=== PATIENT | male | born 2000 | race Caucasian/White ===

== ENCOUNTER 2021-11-15 10:21 | Observation (INO) ==
[2021-11-15] MEDS ORDERED: 0.9 % Sodium Chloride 1,000 ML IVC ONE ×2 (11:44→12:57)
[2021-11-15] MEDS ORDERED: Haloperidol Lactate 5 MG/ML VIAL IVP ONE (11:44)
[2021-11-15] MEDS ORDERED: Ondansetron 4 MG/2 ML VIAL IVP ONE (11:44)
[2021-11-15 12:23] LABS: Basophils % 0.1 %; Hematocrit 48.4 % (37.5-50.1); Hemoglobin 16.8 g/dL (12.9-16.9); Immature Granulocytes % 0.4 % (0-4); Lymphocytes # 1.1 K/mcL (0.6-4.6); Lymphocytes % 5.9 %; Mean Corpuscular HGB Conc 34.7 g/dL (31.6-35.5); Mean Corpuscular Hemoglobin 28.7 pg (28.0-33.3); Mean Corpuscular Volume 82.6 fL (83.0-100.0); Mean Platelet Volume 10.1 fL (9.4-12.4); Monocytes # 1.6 K/mcL (0.0-1.3); Neutrophils # 15.1 K/mcL (1.6-8.9); Platelet Count 285 K/mcL (140-400); Red Blood Count 5.86 M/mcL (4.19-5.50); Red Cell Distribution Width 12.1 % (11.5-14.5); Segmented Neutrophils % 84.6 %; White Blood Count 17.8 K/mcL (4.3-11.1)
[2021-11-15 12:32] LABS: Albumin 5.6 g/dL (3.5-5.7); Albumin/Globulin Ratio 1.5 (1.1-2.2); Bilirubin,Total 0.7 mg/dL (0.3-1.0); Calcium 10.5 mg/dL (8.6-10.3); Globulin 3.7 g/dL (2.4-3.5); Potassium 3.7 mEq/L (3.5-5.1); Total Protein 9.3 g/dL (6.4-8.9)
[2021-11-15] MEDS ORDERED: Iopamidol - 370 500 ML MLS IVP ONE (12:57)
[2021-11-15] MEDS ORDERED: methylPREDNISolone 125 MG/2 ML VIAL IVP ONE (15:30)
[2021-11-15] MEDS ORDERED: Famotidine 20 MG/2 ML VIAL IVP ONE (15:30)
[2021-11-15] MEDS ORDERED: EPINEPHrine 1 MG/ML VIAL IM ONE (15:35)
[2021-11-15] MEDS ORDERED: Naloxone 0.4 MG/ML INJ IVP PRN (16:12)
[2021-11-15] MEDS ORDERED: Ondansetron 4 MG/2 ML VIAL IVP PRN (16:12)
[2021-11-15 17:01] LABS: Influenza A PCR Negative (Negative); Influenza B PCR Negative (Negative); Resp. Syncytial Virus PCR Negative (Negative)
[2021-11-15 17:04] LABS: SARS-CoV-2 by PCR (In House) Negative (Negative)
[2021-11-15] MEDS: 0.9 % Sodium Chloride 1,000 ML IVC SCH (18:15)
[2021-11-16] MEDS: 0.9 % Sodium Chloride 1,000 ML IVC SCH (01:35)
[2021-11-16] MEDS ORDERED: Famotidine 20 MG/2 ML VIAL IVP ONE (01:46)
[2021-11-16 01:49] LABS: Bilirubin,Urine Negative (Negative); Blood,Urine Negative (Negative); Clarity,Urine Clear (Clear); Color,Urine Light-Yellow (Yellow); Glucose,Urine (UA) Normal (Normal); Ketones,Urine 20 mg/dL (Negative); Leukocyte Esterase,Urine Negative (Negative); Nitrite,Urine Negative (Negative); PH,Urine 7.5 pH Units (5.0-8.0); Protein,Urine 100 mg/dL (Neg-Trace); RBC,Urine 0-3 per hpf (0-3); Specific Gravity,Urine > 1.030 (1.010-1.025); Urobilinogen,Urine Normal (Normal); WBC,Urine 0-3 per hpf (0-3)
[2021-11-16 03:23] VITALS: O2SAT 97
[2021-11-16 05:37] LABS: Basophils % 0.1 %; Hematocrit 42.2 % (37.5-50.1); Immature Granulocytes % 0.4 % (0-4); Lymphocytes # 0.7 K/mcL (0.6-4.6); Lymphocytes % 6.5 %; Mean Corpuscular HGB Conc 34.1 g/dL (31.6-35.5); Mean Corpuscular Volume 85.1 fL (83.0-100.0); Mean Platelet Volume 9.9 fL (9.4-12.4); Monocytes # 0.6 K/mcL (0.0-1.3); Monocytes % 5.4 %; Neutrophils # 9.9 K/mcL (1.6-8.9); Platelet Count 220 K/mcL (140-400); Red Blood Count 4.96 M/mcL (4.19-5.50); Segmented Neutrophils % 87.6 %; White Blood Count 11.3 K/mcL (4.3-11.1)
[2021-11-16 05:38] LABS: Hemoglobin 14.4 g/dL (12.9-16.9)
[2021-11-16 06:07] LABS: Alanine Aminotransferase 16 Units/L (7-52); Albumin 4.3 g/dL (3.5-5.7); Albumin/Globulin Ratio 1.5 (1.1-2.2); Alkaline Phosphatase 72 Units/L (34-104); Aspartate Amino Transferase 14 Units/L (13-39); BUN/Creatinine Ratio 21 (6-26); Bilirubin,Total 0.6 mg/dL (0.3-1.0); Blood Urea Nitrogen 19 mg/dL (6-20); Calcium 9.4 mg/dL (8.6-10.3); Carbon Dioxide 32 mEq/L (23-29); Chloride 99 mEq/L (98-107); Globulin 2.8 g/dL (2.4-3.5); Glucose 116 mg/dL (70-105); Magnesium 2.1 mg/dL (1.6-2.6); Osmolality,Calculated 287 (280-300); Phosphorous 3.1 mg/dL (2.7-4.5); Potassium 4.1 mEq/L (3.5-5.1); Sodium 137 mEq/L (136-145); Total Protein 7.1 g/dL (6.4-8.9)
[2021-11-16 06:49] VITALS: BP 119/70; PULSE 69; TEMP 98.2
== END 2021-11-16 11:38 | disposition home or self-care (01) ==
LOC: 3BNU 10:21 → EMEROOARM 10:21 → SUATTDRO 16:55 → 3BNU 17:48
PROVIDERS: ADMIT Pharmacist; ATTEND Nurse Practitioner

== ENCOUNTER 2021-11-16 19:50 | Observation (INO) ==
[2021-11-16] MEDS ORDERED: methylPREDNISolone 125 MG/2 ML VIAL IVP ONE (21:09)
[2021-11-16] MEDS ORDERED: Famotidine 20 MG/2 ML VIAL IVP ONE (21:09)
[2021-11-16] MEDS ORDERED: EPINEPHrine 1 MG/ML VIAL IM ONE (21:09)
[2021-11-17] MEDS ORDERED: Iopamidol - 370 500 ML MLS IVP ONE (02:31)
[2021-11-17] MEDS ORDERED: Ondansetron 4 MG/2 ML VIAL IVP PRN (04:09)
[2021-11-17] MEDS ORDERED: Naloxone 0.4 MG/ML INJ IVP PRN (04:09)
[2021-11-17] MEDS ORDERED: Acetaminophen 325 MG TABLET PO PRN (04:09)
[2021-11-17 16:16] VITALS: BP 126/82; PULSE 62; TEMP 97.6; O2SAT 100
== END 2021-11-17 18:35 | disposition home or self-care (01) ==
LOC: EMEROOARM 19:50 → 3NENU 19:50
PROVIDERS: ADMIT Internal Medicine; ATTEND Internal Medicine